=== PATIENT | male | born 1940 | race Caucasian/White ===

== ENCOUNTER 2019-12-18 08:02 | Outpatient (CLI) | payer MEDICARE, BC, SELFPAY ==
--- NOTE | ~2019-12-18 | NM_ITS ---
EXAMINATION: NM bone scan whole body DATE: 12/18/2019 12:12 INDICATION: Prostate cancer TECHNIQUE: 26.8 mCi Tc-99m HDP was administered intravenously. Delayed whole-body scintigrams were o btained. COMPARISON: CT abdomen and pelvis dated 12/18/2019 FINDINGS: Mild thoracic dextroscoliosis. Likely degenerative joint centered uptake at the bilateral knees, acro mioclavicular, sternoclavicular and sacroiliac joints. No other suspicious foci of abnormal bone upta ke to suggest metastatic disease. Large photopenic defect in the mid right kidney corresponding to a large renal cyst. IMPRESSION: 1. No evident metastatic disease. Reviewed, dictated and finalized at location A. E TEACHER
--- NOTE | ~2019-12-18 | XR_ITS ---
EXAMINATION: XR chest 2V EXAM DATE: 12/18/2019 08:28 INDICATION: Prostate cancer. TECHNIQUE: Frontal and lateral projections of the chest obtained and reviewed. There is no prior phyllis dy for comparison. FINDINGS: Left axillary surgical clips. Moderate chronic hyperinflation. Mild to moderate thoracic de xtroscoliosis. Scattered basilar linear scarring. No confluent consolidation, pneumothorax or pleural effusion suspected. Cardiomediastinal silhouette is normal. There are no osteoblastic or osteolytic lesions identified. IMPRESSION: Basilar scarring. Reviewed, dictated and finalized at location B. [employer] PROCESSING SUPERVISOR IMPRESSION: Basilar scarring.
--- NOTE | ~2019-12-18 | CT_ITS ---
EXAMINATION: CT abdomen pelvis w con EXAM DATE: 12/18/2019 08:42 INDICATION: Prostate cancer. TECHNIQUE: Spiral CT of the abdomen and pelvis was performed following intravenous injection of 100 m L Omnipaque 350. Axial, coronal and sagittal images were reviewed. The dose-length product (DLP) fo r this examination was 479.06 mGy-cm. The exposure was tailored according to patient size (auto mA e xposure control), and iterative reconstruction (ASIR) was used as additional dose reduction technique . There is no prior study for comparison. FINDINGS: The liver, spleen, adrenal glands and pancreas are unremarkable. There is cholelithiasis w ithin an otherwise unremarkable gallbladder. No evidence of obstructive biliary disease. Portal and splenic veins are patent. Kidneys enhance symmetrically. There is no hydronephrosis. There is a 6 cm right renal cyst. There is moderate prostatomegaly, measuring 6 cm. The bladder is unremarkable. There is no retroperitoneal or pelvic lymphadenopathy. There is mild scattered arteriosclerotic di sease. The appendix is normal. The stomach and small bowel are unremarkable. There is moderate sigmoid pred ominant colonic diverticulosis. There is no adjacent inflammatory change to suggest diverticulitis. There is moderate amount of colonic stool. No free intraperitoneal gas. The heart is normal in si ze. There are no pericardial or pleural effusions. Linear basilar scarring/atelectasis. There are no osteoblastic or osteolytic lesions identified. IMPRESSION: 1. No evidence of metastatic disease. 2. Moderate sigmoid predominant diverticulosis. 3. Prostatomegaly. 4. Cholelithiasis. 5. Basilar scarring. Reviewed, dictated and finalized at location B. REPRESENTATIVE
[2019-12-18 08:35] LABS: Estimated Glomerular Filt Rate 59
== END 2019-12-18 08:03 | disposition home or self-care (01) ==
LOC: ANHIMG 08:13
PROVIDERS: PCP Family Medicine; Visit Provider Urology
DX: C61 Malignant neoplasm of prostate (principal); M41.9 Scoliosis, unspecified; K57.30 Diverticulosis of large intestine without perforation or abscess without bleeding; N40.0 Benign prostatic hyperplasia without lower urinary tract symptoms; K80.20 Calculus of gallbladder without cholecystitis without obstruction; J98.4 Other disorders of lung
CPT/HCPCS: 71046; 74177; 78306; A9561; Q9967